=== PATIENT | female | born 1985 | race Caucasian/White ===

== ENCOUNTER 2023-02-22 12:03 | Outpatient (CLI) | payer BC ==
[2023-02-22 12:21] VITALS: BP 127/69; PULSE 84; RESP 16; TEMP 97.4
--- NOTE | 2023-03-09 11:58 | P.MSEPDOC ---
Presenting Problems - Arrival Data Date of Arrival on Unit: 02/22/23 Time of Arrival on Unit: 12:03 Mode of Transport: Ambulatory - Complaint OB-Reason for Admission/Chief Complaint: NST Medical History - Information : 3 Para: 2 Term: 2 : 0 Abortions: Spontaneous or Elective: 0 Number of Living Children: 2 - Gestational Age Gestational Age by ABHIJEET (wks/days): 33 Weeks and 5 Days Review of Systems - Review of Systems Constitutional: No problems Breast: No problems ENT: No problems Cardiovascular: No problems Respiratory: No problems Gastrointestinal: No problems Genitourinary: No problems Musculoskeletal: No problems Neurological: No problems Skin: No problems Vital Signs - Temperature Temperature: 97.4 F Temperature Source: Temporal Artery Scan - Pulse Pulse Oximetery Pulse Rate: 84 Pulse Assessment Method: Pulse Oximetry - Respirations Respiratory Rate: 16 Oxygen Delivery Method: Room Air O2 Sat by Pulse Oximetry: 97 - Blood Pressure Right Arm Blood Pressure: 127/69 Blood Pressure Mean: 88 Blood Pressure Source: Automatic Cuff Medical Screen Scoring - Assessment - Baby A Baseline FHR: 140 Heart Rate - NICHD Category: Category I (Normal) NST: Reactive Physician Notification - Physician Notified Physician Notified Date: 02/22/23 Physician Notified Time: 12:18 Physician: Leeann Blank New Order Received: Yes - Notification Comment Comment: Dr. Blank called, report given, pt here for a routine NST after being unable. to get one in the office this week. Pt has no complaints, NST is reactive, and no. contractions are seen. Orders to discharge pt home. Maternal Triage Index - Maternal Triage Index Presenting for scheduled procedure w/no complaint: Yes - Scheduled/Requesting Priority 5 Scheduled/Requesting Priority 5: Yes Criteria Met for Priority 5: Routine NST 33 5/7wks Disposition - Disposition OB Disposition: Discharge to home Discharge Date: 02/22/23 Discharge Time: 12:25 I agree with the RN Medical Screening Exam: Yes Case reviewed; plan agreed upon as documented in EMR&OBIX.: Yes Diagnosis: SUPERVISION OF ELDERLY MULTIGRAVIDA, THIRD TRIMESTER
== END 2023-02-22 12:25 | disposition home or self-care (01) ==
LOC: FBPOP 12:03
PROVIDERS: ATTEND Obstetrics & Gynecology
DX: O09.523 Supervision of elderly multigravida, third trimester (principal); Z3A.33 33 weeks gestation of pregnancy
CPT/HCPCS: 59025; 99213

== ENCOUNTER 2023-03-25 09:13 | Inpatient (IN) | payer OTHER ==
[2023-03-25] MEDS ORDERED: TERBUTALINE 1 MG/ML VIAL SQ PRN (09:48)
[2023-03-25] MEDS ORDERED: METHYLERGONOVINE 0.2 MG/ML 1 ML AMP IM PRN (09:48)
[2023-03-25] MEDS ORDERED: OXYTOCIN 10 UNIT/ML 1 ML VIAL IM PRN (09:48)
[2023-03-25] MEDS ORDERED: miSOPROStoL 200 MCG TAB PO PRN (09:48)
[2023-03-25] MEDS ORDERED: TRANEXAMIC 1,000 MG/100ML-NACL 1,000 MG in EMPTY BAG 1 BAG IV PRN (09:48)
[2023-03-25] MEDS ORDERED: LIDOCAINE 0.5% (PF) 5 MG/ML (50 ML SDV) SQ PRN (09:48)
[2023-03-25] MEDS ORDERED: CARBOPROST TROMETHAMINE 250 MCG/ML 1 ML AMP IM PRN (09:48)
[2023-03-25] MEDS ORDERED: OXYTOCIN 30 UNITS/500 ML NS 30 UNIT in SALINE 1 500ML.BAG IV SCH (10:00)
[2023-03-25] MEDS ORDERED: LACTATED RINGERS 1,000 ML IV SCH ×2 (10:00)
[2023-03-25] MEDS ORDERED: fentaNYL (PF) 50 MCG/ML 5 ML AMP ONE (10:10)
[2023-03-25] MEDS ORDERED: ROPIVACAINE 5 MG/ML 20 ML AMPULE ONE (10:10)
[2023-03-25] MEDS ORDERED: SODIUM CHLORIDE 0.9% 100 ML BAG ONE (10:10)
[2023-03-25 10:23] LABS: Basophils % (A) 0 %; Eosinophils # (A) 0.1 k/uL (0-0.7); Eosinophils % (A) 1 %; HCT 37.6 % (34.0-46.0); HGB 12.7 gm/dL (11.4-16.0); Lymphocytes # (A) 1.5 k/uL (1.0-4.8); Lymphocytes % (A) 16 %; MCH 29.8 pg (25.0-35.0); MCHC 33.7 g/dL (31.0-37.0); MCV 88.6 fL (80.0-100.0); Mean Platelet Volume 7.7; Monocytes # (A) 0.6 k/uL (0-1.0); Monocytes % (A) 7 %; Neutrophils # (A) 6.4 k/uL (1.3-7.7); Neutrophils % (A) 72 %; Platelet Count 327 k/uL (150-450); RBC 4.25 m/uL (3.80-5.40); RDW 13.5 % (11.5-15.5); WBC 8.9 k/uL (3.8-10.6)
[2023-03-25] MEDS ORDERED: SIMETHICONE 80 MG CHEWABLE PO PRN (12:34)
[2023-03-25] MEDS ORDERED: LANOLIN CREAM 5 GM TUBE TOPICAL PRN (12:34)
[2023-03-25] MEDS ORDERED: ZOLPIDEM 5 MG TAB PO PRN (12:34)
[2023-03-25] MEDS ORDERED: diphenhydrAMINE 25 MG CAP PO PRN (12:34)
[2023-03-25] MEDS ORDERED: BENZOCAINE/MENTHOL SPRAY 1 GM/SPRAY AEROSOL TOPICAL PRN (12:34)
[2023-03-25] MEDS ORDERED: HYDROCORTISONE 2.5% RECTAL CREAM 30 GM TUBE RECTAL PRN (12:34)
[2023-03-25] MEDS ORDERED: diphenhydrAMINE 50 MG/ML 1 ML VIAL IVP PRN ×2 (12:34)
[2023-03-25] MEDS ORDERED: diphenhydrAMINE 50 MG CAP PO PRN (12:34)
[2023-03-25] MEDS ORDERED: ACETAMINOPHEN TAB 325 MG TAB PO PRN (12:34)
--- NOTE | 2023-03-25 13:00 | P.HPOB ---
History of Present Illness H&P Date: 03/25/23 Chief Complaint: Contractions This patient is a pleasant 38-year-old 3 para 2 female estimated date of confinement 04/07/2023 estimated gestational age 38 and one sevenths weeks who presents to labor and delivery with complaints of contractions since earlier this morning. Patient is 5 cm dilated on admission and found to be in early active labor. care is complicated by advanced maternal age. Patient did have normal cell-free DNA testing (46 excess), normal growth ultrasounds, and normal testing. Patient's otherwise has been unco mplicated. Patient has been on baby aspirin due to her age. Review of Systems Genitourinary: Reports Menstruation: Reports amenorrhea Past Medical History Past Medical History: No Reported History Additional Past Medical History / Comment(s): Patient's had 2 previous vaginal deliveries. History of Any Multi-Drug Resistant Organisms: None Reported Past Surgical History: No Surgical Hx Reported Past Anesthesia/Blood Transfusion Reactions: No Reported Reaction Past Psychological History: No Psychological Hx Reported Smoking Status: Never smoker Past Alcohol Use History: None Reported Past Drug Use History: None Reported - Past Family History Mother Family Medical History: Hypertension, Thyroid Disorder Medications and Allergies Home Medications Medication Instructions Recorded Confirmed Type Aspirin 81 mg PO DAILY 03/25/23 03/25/23 History Vit No.179/Iron/Folic 1 each PO DAILY 03/25/23 03/25/23 History [ Tablet] Allergies Allergy/AdvReac Type Severity Reaction Status Date / Time No Known Allergies Allergy Verified 03/25/23 09:37 Exam Vital Signs Temp Pulse Resp BP Pulse Ox 03/25/23 12:30 71 16 125/58 03/25/23 12:05 68 18 121/63 03/25/23 12:00 75 16 118/79 100 03/25/23 11:50 67 18 130/65 03/25/23 11:35 72 18 112/72 03/25/23 11:20 75 16 118/79 03/25/23 09:37 97.0 F L 93 16 131/81 100 Intake and Output 03/24/23 03/25/23 03/25/23 22:59 06:59 14:59 Other: Weight 90.718 kg - OBG Physical Exam Abdomen: bowel sounds normal, no diffuse tenderness, no bruit present, no guarding noted, no hepatomegaly, no splenomegaly, no mass Vulva: both: normal Vagina: normal moisture, no discharge Cervix: no lesion (Cervix is 5 cm dilated completely effaced -2 station bulging bag.), no discharge Uterus: enlarged (Fundal height 37 cm) Results labs show she is B+, rubella immune, RPR nonreactive, hepatitis B and C is negative, HIV is negative, toxoplasmosis was negative, Materni T21 was negative, anatomy and growth ultrasounds have been normal. Result Diagrams: 03/25/23 09:45 Assessment and Plan Assessment: This is a pleasant 38-year-old 3 para 2 female 38 and one sevenths weeks gestation who is admitted to labor and delivery in active labor. Anticipate vaginal delivery. (1) 38 weeks gestation of Current Visit: Yes Status: Acute Code(s): Z3A.38 - 38 WEEKS GESTATION OF SNOMED Code(s): 83646502 (2) Elderly multigravida Current Visit: Yes Status: Acute Code(s): O09.529 - SUPERVISION OF ELDERLY MULTIGRAVIDA, UNSPECIFIED TRIMESTER SNOMED Code(s): 201803802 (3) Normal labor Current Visit: Yes Status: Acute Code(s): O80 - ENCOUNTER FOR FULL-TERM UNCOMPLICATED DELIVERY; Z37.9 - OUTCOME OF DELIVERY, UNSPECIFIED SNOMED Code(s): 56916208
--- NOTE | 2023-03-25 13:04 | P.PROBDLV ---
Vaginal Delivery Note - . Vaginal Delivery Note: Normal spontaneous vaginal delivery viable female infant Apgars 9 and 9 delivery time is 1112 hrs. Please see dictated H&P for intimate details of this patient's admission. In brief summary this is a pleasant 38-year-old 3 para 2 female 38 and one sevenths weeks gestation who is admitted to labor and delivery complaints of regular painful contractions patient is found to be 4-5 cm dilated and completely effaced. Patient has artificial rupture membranes for clear fluid. She subsequent gets an epidural for pain control with good relief. Labor thereafter progresses quickly and she gets to complete. She pushes for approximately 1 contraction and pushes the head to the perineum. Posterior perineum is supported we have controlled delivery of the 's head over the intact perineum. Infant's head is straight occiput anterior presentation. There is no evidence of a nuchal cord. Then bulb suctioned mouth and nares. With gentle downward traction, we then have delivery of the anterior and posterior shoulder and the rest of the 's body. This is a vigorous viable female Apgars are 9 and 9 delivery time was 1112 hrs. has spontaneous respiration and good cry and grossly appears normal. is then laid on the mother's abdomen. After the cord is done pulsating, it is doubly clamped and cut. The placenta is then spontaneously delivered intact. Inspection of perineum shows a first-degree laceration which is repaired with 3- 0 Vicryl in the usual fashion. Excellent reapproximation is noted. All counts are correct 3. There are no complications. Infant and mother are stable delivery room.
[2023-03-25] MEDS: IBUPROFEN 600 MG TAB PO PRN ×2 (17:47→23:25)
[2023-03-25] MEDS: SENNOSIDES-DOCUSATE SODIUM 1 EACH TAB PO SCH (21:48)
--- NOTE | 2023-03-26 06:30 | P.PNOBGVD ---
Subjective - Subjective Patient reports: Reports appetite normal, Reports voiding normally, Reports pain well controlled, Reports ambulating normally : doing well Objective - Latest Vital Signs Latest vital signs: Vital Signs Temp Pulse Resp BP Pulse Ox 03/25/23 23:40 98.1 F 68 18 112/64 03/25/23 23:39 16 03/25/23 20:00 98.6 F 92 16 112/65 03/25/23 16:00 98.1 F 71 16 120/79 03/25/23 13:20 97.8 F 89 16 112/62 03/25/23 12:50 69 18 111/68 03/25/23 12:30 71 16 125/58 03/25/23 12:05 68 18 121/63 03/25/23 12:00 75 16 118/79 100 03/25/23 11:50 67 18 130/65 03/25/23 11:35 72 18 112/72 03/25/23 11:20 75 16 118/79 03/25/23 09:37 97.0 F L 93 16 131/81 100 Intake and Output 03/25/23 03/25/23 03/26/23 14:59 22:59 06:59 Output Total 134 Balance -134 Output: Output, Quantitative 134 Blood Loss Other: Voiding Method Toilet Toilet # Voids 1 1 1 Weight 90.718 kg - Exam Lungs: bilateral: normal Chest: Normal S1, Normal S2 Extremities: Present: normal Abdomen: Present: normal appearance, soft Uterus: Present: normal, firm Assessment and Plan Assessment: day #1. Patient is resting without complaints wishes to go home. Vital signs are stable she is afebrile. Uterus is firm nontender she's having normal lochia. My impression this is a normal course. Plan is to continue routine care discharge home later today. (1) 38 weeks gestation of Current Visit: Yes Status: Acute Code(s): Z3A.38 - 38 WEEKS GESTATION OF SNOMED Code(s): 63731127 (2) Elderly multigravida Current Visit: Yes Status: Acute Code(s): O09.529 - SUPERVISION OF ELDERLY MULTIGRAVIDA, UNSPECIFIED TRIMESTER SNOMED Code(s): 181386926 (3) Normal labor Current Visit: Yes Status: Acute Code(s): O80 - ENCOUNTER FOR FULL-TERM UNCOMPLICATED DELIVERY; Z37.9 - OUTCOME OF DELIVERY, UNSPECIFIED SNOMED Code(s): 43732875
--- NOTE | 2023-03-26 06:34 | P.DS ---
Providers Date of admission: 03/25/23 09:37 Expected date of discharge: 03/26/23 Attending physician: James Swartz Primary care physician: Stated None - Discharge Diagnosis(es) (1) 38 weeks gestation of Current Visit: Yes Status: Acute (2) Elderly multigravida Current Visit: Yes Status: Acute (3) Normal labor Current Visit: Yes Status: Acute Hospital Course: Please see dictated H&P for intimate details of this patient's admission. Brief summary is a pleasant 38-year-old 3 para 2 female 38 and one sevenths weeks gestation admitted to labor and delivery in active labor. Patient quickly goes on to have a vaginal delivery viable female . Please see dictated delivery note. day 1 patient is doing well felt to be stable for discharge home follow up with me in 6 weeks. Procedures: Normal spontaneous vaginal delivery Patient Condition at Discharge: Good Plan - Discharge Summary New Discharge Prescriptions: New Ibuprofen [Motrin] 600 mg PO Q6HR PRN #30 tab PRN Reason: Mild Pain (Scale 1 To 3) No Action Aspirin 81 mg PO DAILY Vit No.179/Iron/Folic [ Tablet] 1 each PO DAILY Discharge Medication List Aspirin 81 mg PO DAILY 03/25/23 [History] Vit No.179/Iron/Folic [ Tablet] 1 each PO DAILY 03/25/23 [History] Ibuprofen [Motrin] 600 mg PO Q6HR PRN #30 tab 03/26/23 [Rx] Follow up Appointment(s)/Referral(s): James Swartz MD [STAFF PHYSICIAN] - 6 Weeks Patient Instructions/Handouts: Vaginal Delivery (DC) Activity/Diet/Wound Care/Special Instructions: No intercourse or anything per vagina for 6 weeks. Please call if any fever, chills, excessive vaginal bleeding, and/or abdominal pain. Discharge Disposition: HOME SELF-CARE
[2023-03-26 06:46] LABS: Basophils % (A) 0 %; Eosinophils # (A) 0.2 k/uL (0-0.7); Eosinophils % (A) 2 %; HCT 32.7 % (34.0-46.0); HGB 10.9 gm/dL (11.4-16.0); Lymphocytes % (A) 19 %; MCH 29.5 pg (25.0-35.0); MCHC 33.4 g/dL (31.0-37.0); MCV 88.2 fL (80.0-100.0); Monocytes # (A) 0.7 k/uL (0-1.0); Monocytes % (A) 7 %; Neutrophils # (A) 7.4 k/uL (1.3-7.7); Neutrophils % (A) 70 %; Platelet Count 265 k/uL (150-450); RBC 3.71 m/uL (3.80-5.40); RDW 13.5 % (11.5-15.5); WBC 10.6 k/uL (3.8-10.6)
[2023-03-26 07:36] VITALS: BP 119/79; PULSE 75; RESP 16; TEMP 97.8
[2023-03-26] MEDS: IBUPROFEN 600 MG TAB PO PRN (07:39)
[2023-03-26] MEDS: SENNOSIDES-DOCUSATE SODIUM 1 EACH TAB PO SCH (07:40)
== END 2023-03-26 12:10 | disposition home or self-care (01) | DRG 807 ==
LOC: FBPOP 09:13 → 4FBP 09:37
PROVIDERS: ADMIT Obstetrics & Gynecology; ATTEND Obstetrics & Gynecology
PROC: 10E0XZZ Delivery of Products of Conception, External Approach (ICD-10-PCS; principal; 2023-03-25)
PROC: 10907ZC Drainage of Amniotic Fluid, Therapeutic from Products of Conception, Via Natural or Artificial Opening (ICD-10-PCS; 2023-03-25)
PROC: 0HQ9XZZ Repair Perineum Skin, External Approach (ICD-10-PCS; 2023-03-25)
PROC: 3E0R3BZ Introduction of Anesthetic Agent into Spinal Canal, Percutaneous Approach (ICD-10-PCS; 2023-03-25)
DX: O70.0 First degree perineal laceration during delivery (principal); Z37.0 Single live birth; Z28.310 Unvaccinated for COVID-19; Z3A.38 38 weeks gestation of pregnancy; Z82.49 Family history of ischemic heart disease and other diseases of the circulatory system; Z79.82 Long term (current) use of aspirin
CPT/HCPCS: 59025; 85025; 86850; 86900; 86901; 99213